=== PATIENT | female | born 1980 | race Caucasian/White ===

== ENCOUNTER 2018-06-21 19:26 | Emergency (ER) | payer MEDICAID, SELFPAY ==
[2018-06-21 19:27] VITALS: BP 143/60; PULSE 105; RESP 16; TEMP 36.7; O2SAT 96; BMI 25.1
--- NOTE | 2018-06-21 19:49 | ED.VISSUMM ---
- ER Visit Summary Date of Service: 06/21/18 Chief Complaint: Facial swelling and possible abscess History of Present Illness: The patient is a 38 F who presents with possible facial abscess that has been getting worse over the past couple days. Patient noted some swelling over her left cheek area. Patient describes pain as aching. Patient states nothing makes it better or worse. Patient admits to subjective fevers but did not take her temperature. Patient admits to some nausea and vomiting. Patient also admits to headache. Patient also states she has some crusting and redness to the right external nares area. Physical Examination: Vital signs are stable. Patient is afebrile. Patient is in no acute distress. Oral mucosa is pink and moist. Neck is supple. Trachea is midline. There is no JVD noted. Skin is warm dry. There is tenderness and mild swelling over the left cheek area. There is no fluctuance. There is no discharge or drainage. There is some erythema and crusting over the right external nares. There is no mucosal membrane involvement. There are no petechia noted. The remaining physical exam is within normal limits. Emergency Department Course and Treatment: Patient was given a prescription for doxycycline. Patient was instructed to follow-up with her primary care physician in 5-7 days. Patient was instructed to use warm compresses to the area. Patient understood and was agreeable with the plan. All questions were answered. Disposition: Discharge home Impression: Facial abscess This note was generated with Mingleverse dictation software. It may contain incorrect words, spelling, and punctuation that were not noted in review of the chart prior to signing ED Disposition - Plan for ED Patient: Disposition: Home or Assisted Living Diagnosis: Facial abscess Instructions: ED Stap Infec Abx Tx Only Prescriptions: Doxycycline 100 mg PO BID #20 cap Referrals: Care Physician,No Primary [Primary Care Provider] -
[2018-06-21 20:13] VITALS: RESP 18
== END 2018-06-21 20:14 | disposition home or self-care (01) ==
PROVIDERS: Emergency Provider Emergency Medicine
DX: L02.01 Cutaneous abscess of face (principal); Z72.0 Tobacco use
CPT/HCPCS: 99282

== ENCOUNTER → 2018-07-12 14:06 | Outpatient (CLI) | payer MEDICAID, SELFPAY ==
[2018-07-11 17:14] VITALS: BMI 25.1
== END ==
PROVIDERS: Visit Provider Physician Assistant Surgical
DX: J02.9 Acute pharyngitis, unspecified (principal)
CPT/HCPCS: 87081

== ENCOUNTER → 2018-09-29 15:33 | Outpatient (CLI) | payer MEDICAID, SELFPAY ==
[2018-07-11 17:14] VITALS: BMI 25.1
[2018-09-29 18:03] LABS: AST(SGOT) 16 U/L (15-37); Alanine Aminotransfer ALT/SGPT 16 U/L (13-56); Albumin, Serum 3.9 g/dL (3.2-5.0); Alkaline Phosphatase 64 U/L (45-117); Bilirubin, Direct 0.07 mg/dL (0.00-0.30); CRP < 2.90 mg/L (0.0-3.0); Globulin 3.3 g/dL (2.2-4.2); Protein, Total 7.2 g/dL (6.4-8.2)
[2018-10-01 16:07] LABS: Endomysial Antibody IgA Negative (Negative)
[2018-10-02 15:25] LABS: Immunoglobulin A 335 mg/dL (87-352); t-Transglutaminase IgA <2 U/mL (0-3)
== END ==
PROVIDERS: Referring Provider Internal Medicine Gastroenterology; Visit Provider Internal Medicine Gastroenterology
DX: R19.7 Diarrhea, unspecified (principal)
CPT/HCPCS: 36415; 80076; 82784; 83516; 86140; 86255

== ENCOUNTER 2018-11-05 23:10 | Emergency (ER) | payer MEDICAID, SELFPAY ==
[2018-07-11 17:14] VITALS: BMI 25.1
[2018-11-05 23:12] VITALS: BP 107/78; PULSE 78; RESP 16; TEMP 36.3; O2SAT 98; BMI 20.3
--- NOTE | 2018-11-06 00:46 | ED.DCSUM_ITS ---
- ER Visit Summary Date of Service: 11/06/18 Chief Complaint: Rash History of Present Illness: The patient is a 38 F presenting with rash on her face. Patient states that she believes she has a staph infection on her face. She states this has been present for 5 months. She states she currently is wearing a lot of make-up and it is difficult to see the bumps on her face. She denies fever. Denies drainage. She has not seen her doctor because she states that she works until 10:30 at night. Denies other complaints. Physical Examination: Vitals are stable. Patient is afebrile. Alert no acute distress. HEENT exam is unremarkable. Neck is supple. Lungs are clear and equal bilaterally. Heart is regular rate and rhythm. Abdomen is soft nontender nondistended. Extremities are unremarkable. Skin is warm and dry. No areas of fluctuance or erythema. Remainder of exam is unremarkable. Emergency Department Course and Treatment: Patient states that the lesions on her face have a flaking, crusting drainage that appears in different areas of her face. She has tried triple antibiotic ointment with no improvement. She is given bactroban ointment. She is advised to follow up with her primary care physician or dermatology. Advised to return to the ED for worsening complaints. Disposition: Discharge home Impression: Rash, suspect impetigo This note was generated with Smarter Agent Mobile dictation software. It may contain incorrect words, spelling, and punctuation that were not noted in review of the chart prior to signing ED Disposition - Plan for ED Patient: Instructions: Impetigo Referrals: Sherrell Barfield [NON-STAFF] -
--- NOTE | 2018-11-06 00:50 | ED.DEP ---
ED Disposition - Plan for ED Patient: Instructions: Impetigo Referrals: Sherrell Barfield [NON-STAFF] -
[2018-11-06] MEDS: Mupirocin Ointment 22gm Tube 1 APPLIC TOPICAL (01:17)
== END 2018-11-06 01:18 | disposition home or self-care (01) ==
LOC: ED 11-06 00:50
PROVIDERS: Emergency Provider Emergency Medicine; Family Provider Family Medicine; PCP Family Medicine
DX: R21 Rash and other nonspecific skin eruption (principal); Z72.0 Tobacco use
CPT/HCPCS: 99282

== ENCOUNTER 2018-11-19 18:31 | Emergency (ER) | payer MEDICAID, SELFPAY ==
[2018-11-19 18:31] VITALS: BP 137/94; PULSE 69; RESP 16; TEMP 36.6; O2SAT 100; BMI 20.8
--- NOTE | 2018-11-19 18:42 | ED.VIS.GEN ---
History of Present Illness Chief Complaint: Flank Pain Detail of Chief Complaint: Bilateral flank pain, stress incontinence, increased thirst, nocturia weigh Informant: Patient Onset: Days - With regards to urinary symptoms, Weeks - With regards to unintentional weight loss, thirst, nocturia Context: Gradual Onset Timing: Continuous, Intermittent - Stress incontinence with coughing Quality: Read narrative Location: Read narrative Current Severity: Mild Maximum Severity: Moderate Worsened by: Incontinence with coughing otherwise nothing Relieved by: Nothing Associated Symptoms: Unintentional weight loss of 25 pounds over the last 2 months Narrative: Patient is a 38-year-old woman who presents with bilateral flank pain. She is presently on Bactrim for urinary tract infection. She states her urine was negative. Her doctor states she has an infection based on symptoms. She reports stress incontinence with coughing. She also reports 25 pound unintentional weight loss over the past 2 months. She had weight loss prior to that secondary to microscopic lymphocytic colitis. She denies diarrhea. She denies black, maroon stool or blood in her stool. She denies dysuria or hematuria. She does report frequency and urgency as well as nocturia. There is family history of diabetes. She denies myalgias arthralgias. She denies night sweats. Prior similar symptoms: Yes Recent Illness/Hospitalization: Yes - UTI - Past Medical History (1) Microscopic colitis, unspecified Status: Acute Past Medical History - Allergies and Home Meds Allergies/Adverse Reactions: Allergies codeine Allergy (Verified 11/05/18 23:11) Hives latex Allergy (Verified 11/05/18 23:11) Rash Penicillins Allergy (Verified 11/05/18 23:11) Hives Primary Care Physician: Consuelo Medina DO [Primary Care Provider] - Prior records reviewed: Yes Lives: - - Patient is Smoking Status: Current every day smoker Alcohol: Rare Drugs: None Review of Systems General: Reports: Weight loss. Denies: Chills, Fever, Malaise, Sweats Eyes: Denies: Visual changes - bilaterally, Blurred Vision - bilaterally ENT: Denies: Bilateral ear pain, Rhinorrhea, Sore throat Cardiovascular: Denies: Chest pain, Palpitations Respiratory: Reports: Cough. Denies: Dyspnea, Sputum, Dyspnea on exertion, Orthopnea, Paroxysmal nocturnal dyspnea, -, - Gastrointestinal: Denies: Abdominal pain, Nausea, Vomiting, Diarrhea, Melena, Hematochezia, - Genitourinary: Reports: Frequency, -. Denies: Dysuria, Hematuria Musculoskeletal: Reports: Back pain - Bilateral flank pain. Denies: Myalgias, Arthralgias, Neck pain, Swelling, Extremity Pain Skin: Reports: Rash, Wounds Neurological: Denies: Weakness, Parasthesia, Numbness Endocrine: Denies: Polyuria, Polydipsia Hematologic: Denies: Easy bruising, Easy bleeding Allergy: Denies: Uticaria Physical Exam Vital Signs/Narrative: Vital Signs Temp Pulse Resp BP Pulse Ox 11/19/18 18:31 97.9 F 69 16 137/94 H 100 Inital Vital Signs reviewed: Yes General: Well nourished, Well developed, No Acute Distress Head: Normocephalic, Atraumatic Eyes: Perrl, EOMI. Negative for: Pale conjunctiva, Scleral icterus ENT: Moist mucous membranes, No rhinorrhea Neck: Supple, Nontender Cardiovascular: Regular rate, Regular rhythm, No murmurs, Normal S1, Normal S2 Respiratory: No distress, CTA bilaterally, Chest nontender Abdomen: Soft, Nondistended, Normal bowel sounds, No masses. Negative for: Nontender Back: Nontender, Normal Inspection. Negative for: CVA tenderness, Spinal tenderness Extremities: Nontender, No edema Skin: Normal color, No rash, No Trauma. Negative for: Cyanosis, Diaphoresis, Jaundice Neurological: Alert, Oriented x3, Cranial nerves II-XII grossly intact, Normal Strength, Normal Sensation, Normal DTR, Normal Gait Psychological: Normal affect, Normal Mood Diagnostic/Tx/Re-eval Laboratory Results 11/19/18 11/19/18 11/19/18 19:00 19:10 19:10 WBC 7.0 RBC 4.29 Hgb 11.3 L Hct 35.7 L MCV 83.2 MCH 26.3 L MCHC 31.7 L RDW Std Deviation 50.5 H RDW Coeff of Alisa 16.6 H Plt Count 393 MPV 8.9 Immature Gran % (Auto) 0.100 Neut % (Auto) 49.7 Lymph % (Auto) 37.1 Willacy % (Auto) 8.1 Eos % (Auto) 4.1 Baso % (Auto) 0.9 Absolute Neuts (auto) 3.5 Absolute Lymphs (auto) 2.60 Nucleated RBC % 0 Sodium 137 Potassium 3.5 Chloride 105 Carbon Dioxide 28.0 Anion Gap 4 L BUN 4 L Creatinine 0.72 Estim Creat Clear Calc 100.90 Est GFR (MDRD) Af Amer 115 Est GFR (MDRD) Non-Af 95 BUN/Creatinine Ratio 5.5 L Glucose 94 Calcium 8.6 Urine Color Straw Urine Clarity Clear Urine pH 7.0 Ur Specific Menard 1.005 Urine Protein Negative Urine Glucose (UA) Normal Urine Ketones Negative Urine Occult Blood Negative Urine Nitrite Negative Urine Bilirubin Negative Urine Urobilinogen Normal Ur Leukocyte Esterase Negative Urine RBC 0 SEEN Urine WBC 0 SEEN Ur Squamous Epith Cells 0 SEEN Urine Bacteria 0 SEEN Urine Mucus 0 SEEN CBC is remarkable for mild anemia. Basic metabolic panel is unremarkable. UA is normal. There is no evidence of urinary tract infection. There is no evidence of acute kidney injury. With a normal BUN to creatinine ratio one would conclude that the anemia is chronic and not associated with acute blood loss. - Medical Decision Making Patient has stress incontinence. She has history of having 4 children. She has no urinary symptoms. Will obtain UA. Will assess for glucose and ketones since she is reporting frequency and nocturia with polydipsia. There is family history of diabetes. Because she has history of colitis we will obtain baseline blood work since she reports unintentional weight loss of 25 pounds over the past 2 to 3 months. With normal work-up and normal UA patient was instructed to follow-up with her primary care physician. She was told the reason she has incontinence is because she has stress incontinence and is related to her multiple pregnancies. She would need to follow-up with clinical mental health counselor for possible surgical repair. Furthermore, she was informed the cause of her flank pain is unknown. ED Disposition - Plan for ED Patient: Disposition: Home or Assisted Living Diagnosis: Bilateral flank pain, Urinary, incontinence, stress female Instructions: FLANK PAIN, Uncertain Cause, What Is Stress Urinary Incontinence (ORIANA)? Referrals: Consuelo Medina DO [Primary Care Provider] - 5-7 Days Additional Instructions: Take either 4 ibuprofen tablets every 8 hours or 2 Aleve tablets every 12 hours for the next 3 to 5 days for your flank pain. You will need to follow-up with clinical mental health counselor for your urinary stress incontinence.
[2018-11-19 19:19] LABS: Bacteria 0 SEEN /hpf (None Seen); Mucous, Urine 0 SEEN /hpf (<or=2+); Red Blood Cells-Urine 0 SEEN /hpf (0-5); Squamous Epithelial Cells - UA 0 SEEN /hpf (5-10); White Blood Cells 0 SEEN /hpf (0-5)
[2018-11-19 19:29] LABS: Color, Urine Straw (Yellow); Glucose, Dipstick Normal (Normal); Ketone-Dipstick Negative (Negative); Leukocyte Esterase-Dipstick Negative /ul (Negative); Nitrite-Dipstick Negative (Negative); Occult Blood-Urine Negative /ul (Negative); Protein-Dipstick Negative (Negative); Specific Gravity, Urine 1.005 (1.002-1.030); Urine Bilirubin Dipstick Negative (Negative); Urine Clarity Clear (Clear); Urine Urobilinogen Normal (Normal)
[2018-11-19 19:31] LABS: Absolute Neutrophil Count 3.5 X10^3/uL (2.0-7.7); Basophil# 0.06 X10^3/uL; Basophil% 0.9 % (0-1); Eosinophil# 0.29 X10^3/uL; Eosinophils% 4.1 % (0-5); Hematocrit 35.7 % (37-47); Hemoglobin 11.3 g/dL (12.0-15.0); Lymphocyte % 37.1 % (19-41); Mean Corp Hgb Conc 31.7 g/dL (32-36); Mean Corpuscular Hgb 26.3 pg (27.0-32.0); Mean Corpuscular Volume 83.2 fL (81-99); Mean Platelet Vol. 8.9 fl (6.2-12.0); Monocyte# 0.57 X10^3/uL; Monocyte% 8.1 % (0-10); NRBC Flagged by Analyzer 0 % (0-5); Neutrophil # 3.48 X10^3/uL (2.7-7.7); Neutrophil % 49.7 % (47-70); Platelet Count 393 K/mm3 (150-450); RBC Distribution Width CV 16.6 % (11.6-14.6); RBC Distribution Width SD 50.5 fl (35.1-43.9); Red Blood Count 4.29 M/mm3 (4.2-5.4)
[2018-11-19 19:39] LABS: Anion Gap 4 (5-15); BUN 4 mg/dL (7-18); BUN/Creat Ratio 5.5 RATIO (10-20); Calcium,Total 8.6 mg/dL (8.5-10.1); Chloride 105 mmol/L (98-107); Creatinine, Serum 0.72 mg/dL (0.55-1.02); EST Glomerular Filtration Rate 95 mL/min (>60); Est Glom Filt Rate - Afr Amer 115 mL/min (>60); Glucose 94 mg/dL (74-106); Potassium 3.5 mmol/L (3.5-5.1); Sodium Level 137 mmol/L (136-145)
[2018-11-19 20:00] VITALS: BP 130/78; PULSE 72; RESP 18; O2SAT 100
== END 2018-11-19 20:01 | disposition home or self-care (01) ==
PROVIDERS: Emergency Provider Emergency Medicine; Family Provider Family Medicine; PCP Family Medicine
DX: R10.9 Unspecified abdominal pain (principal); N39.3 Stress incontinence (female) (male); N39.0 Urinary tract infection, site not specified; F17.200 Nicotine dependence, unspecified, uncomplicated
CPT/HCPCS: 80048; 81001; 85025; 99284; A4216

== ENCOUNTER → 2018-12-09 14:18 | Outpatient (CLI) | payer MEDICAID, SELFPAY ==
[2018-12-08 16:40] VITALS: BMI 20.8
== END ==
PROVIDERS: Family Provider Family Medicine; PCP Family Medicine; Referring Provider Physician Assistant; Visit Provider Physician Assistant
DX: J02.9 Acute pharyngitis, unspecified (principal)
CPT/HCPCS: 87070; 87077; 87186

== ENCOUNTER → 2019-01-15 | Outpatient (CLI) | payer MEDICAID, SELFPAY ==
[2019-01-14 14:11] VITALS: BMI 20.8
== END | disposition home or self-care (01) ==
LOC: LABSPEC 14:47
PROVIDERS: Family Provider Family Medicine; PCP Family Medicine; Referring Provider Physician Assistant; Visit Provider Physician Assistant
DX: J02.9 Acute pharyngitis, unspecified (principal)
CPT/HCPCS: 87070; 87077; 87186

== ENCOUNTER → 2020-01-01 10:38 | Outpatient (CLI) | payer MEDICAID, SELFPAY ==
[2019-12-02 12:51] VITALS: BMI 20.8
== END ==
PROVIDERS: Referring Provider Physician Assistant; Visit Provider Physician Assistant
DX: Z20.828 Contact with and (suspected) exposure to other viral communicable diseases (principal)
CPT/HCPCS: 87635; C9803; U0003

== ENCOUNTER 2020-04-05 12:46 | Emergency (ER) | payer OTHER, MEDICAID, SELFPAY ==
[2019-12-02 12:51] VITALS: BMI 20.8
[2020-04-05 12:47] VITALS: BP 121/81; PULSE 96; RESP 16; TEMP 36.6; O2SAT 98; BMI 20.5
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
[2020-04-05] MEDS: Ibuprofen 600 MG Tablet PO (13:53)
[2020-04-05 13:54] VITALS: PULSE 83; RESP 14; O2SAT 98
[2020-04-05 14:20] VITALS: BP 122/74; PULSE 85; RESP 14; O2SAT 99
== END 2020-04-05 14:21 | disposition home or self-care (01) ==
PROVIDERS: Emergency Provider Emergency Medicine
DX: S16.1XXA Strain of muscle, fascia and tendon at neck level, initial encounter (principal); F17.200 Nicotine dependence, unspecified, uncomplicated; V49.00XA Driver injured in collision with unspecified motor vehicles in nontraffic accident, initial encounter
CPT/HCPCS: 70450; 71046; 72040; 99282

== ENCOUNTER 2023-07-23 01:30 | Emergency (ER) | payer SELFPAY ==
[2023-07-23 01:31] VITALS: BP 133/91; PULSE 71; RESP 18; TEMP 36.6; O2SAT 95; BMI 20.2
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
[2023-07-23] MEDS: Naproxen 500 MG Tablet PO (01:47)
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
[2023-07-23 02:55] VITALS: BP 133/96; PULSE 89; RESP 16; TEMP 36.7; O2SAT 99
== END 2023-07-23 03:03 | disposition home or self-care (01) ==
PROVIDERS: Emergency Provider Emergency Medicine; PCP Family Medicine; Visit Provider Emergency Medicine
DX: S09.90XA Unspecified injury of head, initial encounter (principal); S16.1XXA Strain of muscle, fascia and tendon at neck level, initial encounter; S80.11XA Contusion of right lower leg, initial encounter; S20.20XA Contusion of thorax, unspecified, initial encounter; F17.290 Nicotine dependence, other tobacco product, uncomplicated; V49.40XA Driver injured in collision with unspecified motor vehicles in traffic accident, initial encounter; Z86.16 Personal history of COVID-19
CPT/HCPCS: 70450; 71046; 72125; 73590; 99282